=== PATIENT | male | born 1990 | race Caucasian/White ===

== ENCOUNTER 2019-10-30 07:52 | Emergency (ER) | payer OTHER ==
[2019-10-30 07:58] VITALS: BP 178/88; PULSE 98; RESP 20; TEMP 98
--- NOTE | 2019-10-30 08:15 | ED ---
Upper Extremity HPI - General Chief Complaint: Extremity Injury, Upper Stated Complaint: Left Hand Knuckle Pain Time Seen by Provider: 10/30/19 08:00 Source: patient, RN notes reviewed Mode of arrival: ambulatory Limitations: no limitations - History of Present Illness Initial Comments: 29-year-old male presents emergency Department with chief complaint of left hand third digit pain. Patient states he was playing around his kids states that he had his finger bent underneath of his hand and states that popped. He states shortly after started swelling he's had increasing pain throughout the night. Patient is right-hand dominant no prior injuries to his left hand. No paresthesias no weakness. - Related Data Allergies Allergy/AdvReac Type Severity Reaction Status Date / Time No Known Allergies Allergy Verified 10/30/19 07:58 Review of Systems ROS Statement: Those systems with pertinent positive or pertinent negative responses have been documented in the HPI. ROS Other: All systems not noted in ROS Statement are negative. Past Medical History Past Medical History: No Reported History History of Any Multi-Drug Resistant Organisms: None Reported Past Surgical History: No Surgical Hx Reported Past Psychological History: No Psychological Hx Reported Smoking Status: Never smoker Past Alcohol Use History: None Reported Past Drug Use History: None Reported General Exam Limitations: no limitations General appearance: alert, in no apparent distress Head exam: Present: atraumatic, normocephalic, normal inspection Neck exam: Present: normal inspection, full ROM. Absent: tenderness, meningismus, lymphadenopathy Respiratory exam: Present: normal lung sounds bilaterally. Absent: respiratory distress, wheezes, rales, rhonchi, stridor Cardiovascular Exam: Present: regular rate, normal rhythm, normal heart sounds. Absent: systolic murmur, diastolic murmur, rubs, gallop, clicks Extremities exam: Present: other (Left hand third MCP region there is moderate swelling, times palpation patient has full range of motion full-strength neurovascular intact) Course Vital Signs 10/30/19 07:56 Temperature 98.0 F Pulse Rate 98 Respiratory 20 Rate Blood Pressure 178/88 O2 Sat by Pulse 98 Oximetry Medical Decision Making - Medical Decision Making X-rays are negative for acute abnormality. Patient has a sprain of his left hand. Patient will be started on conservative treatment including rest ice elevation and ibuprofen. Return parameters were discussed. Disposition Clinical Impression: Sprain, MCP, hand, left Disposition: HOME SELF-CARE Condition: Stable Instructions (If sedation given, give patient instructions): Hand Sprain (ED) Additional Instructions: Please return to the Emergency Department if symptoms worsen or any other concerns. Is patient prescribed a controlled substance at d/c from ED?: No Referrals: None,Stated [Primary Care Provider] - 1-2 days Edwin Levy DO [Medical Doctor] - 1-2 days Time of Disposition: 08:46
--- NOTE | 2019-10-30 08:46 | XR ---
EXAMINATION TYPE: XR hand complete LT , 3 VIEWS DATE OF EXAM ORDERED: 10/30/2019 HISTORY: 3rd MCP pain. COMPARISON: None. FINDINGS: No fracture, dislocation or other osseous lesion is seen. IMPRESSION: NO ACUTE OSSEOUS LESION.
== END 2019-10-30 08:55 | disposition home or self-care (01) ==
LOC: EC 07:52
DX: S63.653A Sprain of metacarpophalangeal joint of left middle finger, initial encounter (principal); X50.9XXA Other and unspecified overexertion or strenuous movements or postures, initial encounter; Y93.89 Activity, other specified; Y92.009 Unspecified place in unspecified non-institutional (private) residence as the place of occurrence of the external cause
CPT/HCPCS: 99283

== ENCOUNTER 2020-05-13 13:45 | Emergency (ER) | payer OTHER ==
[2020-05-13 13:57] VITALS: RESP 18
[2020-05-13] MEDS ORDERED: ONDANSETRON 4 MG/2 ML VIAL IVP STA (14:21)
[2020-05-13] MEDS ORDERED: PANTOPRAZOLE 40 MG/10 ML VIAL IVP STA (14:21)
[2020-05-13] MEDS ORDERED: SODIUM CHLORIDE 0.9% 500 ML 500 ML IV STA (14:21)
[2020-05-13] MEDS ORDERED: SODIUM CHLORIDE 0.9% 1,000 ML IV STA ×2 (14:21)
--- NOTE | 2020-05-13 14:23 | ED ---
Nausea/Vomiting/Diarrhea HPI - General Chief complaint: Nausea/Vomiting/Diarrhea Stated complaint: NVD Time Seen by Provider: 05/13/20 14:02 Source: patient, RN notes reviewed, old records reviewed Mode of arrival: ambulatory Limitations: no limitations - History of Present Illness Initial comments: This is a 30-year-old male DF for persistent nausea vomiting diarrhea starting yesterday persisting today. Multiple episodes of diarrhea 3 multiple episodes of vomiting 3. No known travel history or sick contacts no abdominal pain no fevers. No medical history takes no medications MD complaint: nausea, vomiting, diarrhea -: days(s) Description of Vomiting: food contents Associated Abdominal Pain: Yes Radiation: none Severity: mild Severity scale (1-10): 3 Consistency: constant Improves with: none (Who is not bleeding although I got a difficult.) Worsens with: none Context: sick contacts (: Neurologic) Associated Symptoms: denies other symptoms - Related Data Allergies Allergy/AdvReac Type Severity Reaction Status Date / Time No Known Allergies Allergy Verified 10/30/19 07:58 Review of Systems ROS Statement: Those systems with pertinent positive or pertinent negative responses have been documented in the HPI. ROS Other: All systems not noted in ROS Statement are negative. Past Medical History Past Medical History: Asthma History of Any Multi-Drug Resistant Organisms: None Reported Past Surgical History: No Surgical Hx Reported Additional Past Surgical History / Comment(s): oral Past Psychological History: No Psychological Hx Reported Smoking Status: Never smoker Past Alcohol Use History: Occasional Past Drug Use History: None Reported General Exam Limitations: no limitations General appearance: alert, in no apparent distress Head exam: Present: atraumatic, normocephalic, normal inspection Eye exam: Present: normal appearance, PERRL, EOMI. Absent: scleral icterus, conjunctival injection, periorbital swelling ENT exam: Present: normal exam, mucous membranes moist Neck exam: Present: normal inspection. Absent: tenderness, meningismus, lymphadenopathy Respiratory exam: Present: normal lung sounds bilaterally. Absent: respiratory distress, wheezes, rales, rhonchi, stridor Cardiovascular Exam: Present: regular rate, normal rhythm, normal heart sounds. Absent: systolic murmur, diastolic murmur, rubs, gallop, clicks GI/Abdominal exam: Present: soft, normal bowel sounds. Absent: distended, tenderness, guarding, rebound, rigid Extremities exam: Present: normal inspection, full ROM, normal capillary refill. Absent: tenderness, pedal edema, joint swelling, calf tenderness Back exam: Present: normal inspection Neurological exam: Present: alert, oriented X3, CN II-XII intact Psychiatric exam: Present: normal affect, normal mood Skin exam: Present: warm, dry, intact, normal color. Absent: rash Course Vital Signs 05/13/20 05/13/20 13:54 15:23 Temperature 99 F 97.8 F Pulse Rate 95 85 Respiratory 18 18 Rate Blood Pressure 156/86 152/95 O2 Sat by Pulse 99 98 Oximetry - Reevaluation(s) Reevaluation #1: 05/13/20 14:35 Medical records reviewed Symptoms improved if not resolved Medical Decision Making - Medical Decision Making 28 male persistent nausea vomiting and diarrhea. Symptoms resolved patient can be discharged home - Lab Data Result diagrams: 05/13/20 14:23 05/13/20 14:23 Lab Results 05/13/20 05/13/20 Range/Units 14:23 14:23 WBC 7.6 (3.8-10.6) k/uL RBC 5.47 (4.30-5.90) m/uL Hgb 16.6 (13.0-17.5) gm/dL Hct 47.4 (39.0-53.0) % MCV 86.7 (80.0-100.0) fL MCH 30.3 (25.0-35.0) pg MCHC 35.0 (31.0-37.0) g/dL RDW 13.4 (11.5-15.5) % Plt Count 244 (150-450) k/uL Neutrophils % 54 % Lymphocytes % 33 % Monocytes % 7 % Eosinophils % 3 % Basophils % 1 % Neutrophils # 4.1 (1.3-7.7) k/uL Lymphocytes # 2.5 (1.0-4.8) k/uL Monocytes # 0.6 (0-1.0) k/uL Eosinophils # 0.3 (0-0.7) k/uL Basophils # 0.1 (0-0.2) k/uL Sodium 139 (137-145) mmol/L Potassium 4.2 (3.5-5.1) mmol/L Chloride 103 (98-107) mmol/L Carbon Dioxide 24 (22-30) mmol/L Anion Gap 12 mmol/L BUN 9 (9-20) mg/dL Creatinine 0.68 (0.66-1.25) mg/dL Est GFR (CKD-EPI)AfAm >90 (>60 ml/min/1.73 sqM) Est GFR (CKD-EPI)NonAf >90 (>60 ml/min/1.73 sqM) Glucose 96 (74-99) mg/dL Calcium 9.6 (8.4-10.2) mg/dL Phosphorus 3.0 (2.5-4.5) mg/dL Magnesium 2.0 (1.6-2.3) mg/dL Total Bilirubin 1.8 H (0.2-1.3) mg/dL AST 41 (17-59) U/L ALT 49 (4-49) U/L Alkaline Phosphatase 42 (38-126) U/L Total Protein 7.5 (6.3-8.2) g/dL Albumin 5.0 (3.5-5.0) g/dL Disposition Clinical Impression: Dehydration, Food poisoning, Gastroenteritis Disposition: HOME SELF-CARE Condition: Good Instructions (If sedation given, give patient instructions): Acute Nausea and Vomiting (ED) Is patient prescribed a controlled substance at d/c from ED?: No Referrals: None,Stated [Primary Care Provider] - 1-2 days
[2020-05-13 14:32] LABS: Basophils # (A) 0.1 k/uL (0-0.2); Basophils % (A) 1 %; Eosinophils # (A) 0.3 k/uL (0-0.7); Eosinophils % (A) 3 %; HCT 47.4 % (39.0-53.0); HGB 16.6 gm/dL (13.0-17.5); Lymphocytes # (A) 2.5 k/uL (1.0-4.8); Lymphocytes % (A) 33 %; MCH 30.3 pg (25.0-35.0); MCV 86.7 fL (80.0-100.0); Mean Platelet Volume 6.8; Monocytes # (A) 0.6 k/uL (0-1.0); Monocytes % (A) 7 %; Neutrophils # (A) 4.1 k/uL (1.3-7.7); Neutrophils % (A) 54 %; Platelet Count 244 k/uL (150-450); RBC 5.47 m/uL (4.30-5.90); RDW 13.4 % (11.5-15.5); WBC 7.6 k/uL (3.8-10.6)
[2020-05-13 14:40] LABS: ALT 49 U/L (4-49); AST 41 U/L (17-59); African American GFR (CKD) >90 (>60 ml/min/1.73 sqM); Alkaline Phosphatase 42 U/L (38-126); Anion Gap 12 mmol/L; Blood Urea Nitrogen 9 mg/dL (9-20); Calcium 9.6 mg/dL (8.4-10.2); Carbon Dioxide 24 mmol/L (22-30); Chloride 103 mmol/L (98-107); Glucose 96 mg/dL (74-99); Non-African American GFR(CKD) >90 (>60 ml/min/1.73 sqM); Potassium 4.2 mmol/L (3.5-5.1); Sodium 139 mmol/L (137-145); Total Bilirubin 1.8 mg/dL (0.2-1.3); Total Protein 7.5 g/dL (6.3-8.2)
[2020-05-13 15:28] VITALS: BP 152/95; PULSE 85; TEMP 97.8
== END 2020-05-13 15:23 | disposition home or self-care (01) ==
LOC: EC 13:45
DX: A05.9 Bacterial foodborne intoxication, unspecified (principal); K52.9 Noninfective gastroenteritis and colitis, unspecified; E86.0 Dehydration
CPT/HCPCS: 99284; 96374; 96375; 96361; 36415; 80053; 83735; 84100; 85025; J2405; C9113

== ENCOUNTER → 2020-06-23 | Outpatient (CLI) | payer OTHER | END | disposition home or self-care (01) | LOC: LABWHC1 12:03 | PROVIDERS: ATTEND Pediatrics Pediatric Infectious Diseases | DX: Z11.59 Encounter for screening for other viral diseases (principal) | CPT/HCPCS: U0003; C9803 ==

== ENCOUNTER 2021-01-24 17:23 | Emergency (ER) | payer OTHER ==
[2021-01-24 17:44] VITALS: BP 139/74; PULSE 100; RESP 18; TEMP 99.3
--- NOTE | 2021-01-24 18:04 | XR ---
EXAMINATION TYPE: XR ribs RT w pa chest xray DATE OF EXAM: 01/24/2021 COMPARISON: NONE HISTORY: Rib pain TECHNIQUE: 5 views FINDINGS: Heart and mediastinum are normal. Lungs are clear. Diaphragm is normal. Bony thorax is inta ct. There is no pleural effusion or pneumothorax. There is no evidence of a rib fracture. The right s houlder appears intact. IMPRESSION: Negative right rib exam. Normal chest.
--- NOTE | 2021-01-24 18:36 | ED ---
General Adult HPI - General Chief complaint: Chest Pain Stated complaint: Right rib pain/injury Time Seen by Provider: 01/24/21 18:28 Source: patient, RN notes reviewed, old records reviewed Mode of arrival: ambulatory Limitations: no limitations - History of Present Illness Initial comments: 30-year-old male presents for evaluation of right lateral chest pain. Patient states he was laying on the floor, he had a friend adjusting his thoracic spine. He felt a popping sensation and pain in his right lateral rib. He was concerned that he may have had a rib fracture. He still has some pain in this area although it is reduced at this time. This occurred approximately 3 hours prior to evaluation. No difficulty breathing. No abdominal pain. No limb numbness or weakness. No central chest pain. This is right along the lateral margin of the chest wall. - Related Data Previous Rx's Medication Instructions Recorded Ibuprofen [Motrin] 600 mg PO Q8HR PRN #24 tab 01/24/21 Allergies Allergy/AdvReac Type Severity Reaction Status Date / Time No Known Allergies Allergy Verified 01/24/21 17:42 Review of Systems ROS Statement: Those systems with pertinent positive or pertinent negative responses have been documented in the HPI. ROS Other: All systems not noted in ROS Statement are negative. Past Medical History Past Medical History: Asthma, Hypertension History of Any Multi-Drug Resistant Organisms: None Reported Past Surgical History: No Surgical Hx Reported Additional Past Surgical History / Comment(s): oral Past Psychological History: No Psychological Hx Reported Smoking Status: Former smoker Past Alcohol Use History: Occasional Past Drug Use History: None Reported General Exam Limitations: no limitations General appearance: alert, in no apparent distress Head exam: Present: atraumatic, normocephalic Eye exam: Present: normal appearance ENT exam: Present: normal exam Neck exam: Present: normal inspection. Absent: tenderness, meningismus Respiratory exam: Present: normal lung sounds bilaterally, chest wall tenderness (Tenderness along the fifth or sixth rib laterally. No crepitus. ). Absent: respiratory distress, wheezes, rales, rhonchi Cardiovascular Exam: Present: regular rate, normal rhythm GI/Abdominal exam: Present: soft. Absent: distended, tenderness, guarding, rebound Extremities exam: Present: normal inspection, normal capillary refill. Absent: pedal edema, calf tenderness Back exam: Present: normal inspection, full ROM Neurological exam: Present: alert, oriented X3, CN II-XII intact. Absent: motor sensory deficit Psychiatric exam: Present: normal affect, normal mood Skin exam: Present: warm, dry, intact Course Vital Signs 01/24/21 17:40 Temperature 99.3 F Pulse Rate 100 Respiratory 18 Rate Blood Pressure 139/74 O2 Sat by Pulse 99 Oximetry Medical Decision Making - Medical Decision Making 30-year-old male with right chest wall pain. X-ray performed, negative for pneumothorax, negative for displaced rib fracture, no acute findings. Patient will be prescribed Motrin. He will follow with his primary condition of symptoms persist she will return with worsening or changing symptoms. Disposition Clinical Impression: Chest pain, Contusion of rib Disposition: HOME SELF-CARE Condition: Good Instructions (If sedation given, give patient instructions): Chest Pain (ED), Rib Contusion (ED) Prescriptions: Ibuprofen [Motrin] 600 mg PO Q8HR PRN #24 tab PRN Reason: Pain Is patient prescribed a controlled substance at d/c from ED?: No Referrals: Mynor Cody MD [Primary Care Provider] - 1-2 days Time of Disposition: 18:36
== END 2021-01-24 18:39 | disposition home or self-care (01) ==
LOC: EC 17:23
DX: S20.219A Contusion of unspecified front wall of thorax, initial encounter (principal); J45.909 Unspecified asthma, uncomplicated; I10 Essential (primary) hypertension; Z87.891 Personal history of nicotine dependence; X58.XXXA Exposure to other specified factors, initial encounter

== ENCOUNTER → 2023-12-18 | Outpatient (CLI) | payer OTHER ==
[2023-12-19 02:24] LABS: HCT 49.2 % (39.6-50.0); HGB 16.3 g/dL (13.0-17.0); MCHC 33.1 g/dL (32.0-37.0); MCV 84.4 FL (80.0-97.0); Mean Platelet Volume 9.2 FL (9.5-12.2); NRBC Per 100 WBC 0 X 10*3/uL (0.00-0.01); Platelet Count 266 X 10*3/uL (140-440); RBC 5.83 X 10*6/uL (4.40-5.60); WBC 8.79 X 10*3/uL (4.50-10.00)
[2023-12-19 03:11] LABS: ALT 45 U/L (10-49); AST 24 U/L (14-35); Albumin 4.3 g/dL (3.8-4.9); Albumin/Globulin Ratio 2.39 Ratio (1.60-3.17); Alkaline Phosphatase 36 U/L (41-126); Calcium 9.4 mg/dL (8.7-10.3); Carbon Dioxide 27.8 mmol/L (21.6-31.8); Chloride 101 mmol/L (96-109); Globulin 1.8 g/dL (1.6-3.3); Glucose 93 mg/dL (70-110); Potassium 4.4 mmol/L (3.5-5.5); Sodium 141 mmol/L (135-145); Total Bilirubin 0.8 mg/dL (0.3-1.2); Total Protein 6.1 g/dL (6.2-8.2)
== END | disposition home or self-care (01) ==
LOC: LABPAT 15:15
PROVIDERS: ATTEND Surgery
DX: E66.01 Morbid (severe) obesity due to excess calories (principal); K90.89 Other intestinal malabsorption; E55.9 Vitamin D deficiency, unspecified
CPT/HCPCS: 36415; 80053; 82306; 82607; 82746; 83036; 85027

== ENCOUNTER → 2023-12-18 | Outpatient (CLI) | payer OTHER ==
[2023-12-18 15:07] VITALS: BP 132/84; PULSE 87; RESP 16; TEMP 98.5; BMI 43.8
--- NOTE | 2023-12-18 17:55 | P.HPBAR ---
Bariatric H&P - History & Physicial H&P Date: 12/18/23 History & Physicial: Visit/CC: Initial Consult Patient initial contact: Initial weight: 128.82 kg Initial weight in pounds: 284.00 Height: 5 ft 7.5 in Initial BMI: 43.8 Last weight: Current weight: 128.82 kg Current weight in pounds: 284.00 Current BMI: 43.8 [place] body weight (based on NIH guidelines): 68.492 kg Excess body weight loss: 0.0% The patient is a 33 year-old M who presents for Bariatric Assessment. Patient here to discuss sleeve gastrectomy. He is is currently going through preoperative sleeve gastrectomy workup. She has her upper endoscopy scheduled next Friday. Current BMI 43.8. Patient has suffered with his weight for many years. He has tried a variety of weight loss methods. Patient suffers from hypertension, migraines, intermittent tachycardia, mild GERD. No history of DVT or dysphagia. No abdominal surgeries. No known hernias. No tobacco use. Patient has considered gastric bypass but does not like the long-term complication profile. Review of Systems The patient denies any acute changes in vision or hearing, no dysphagia or odynophagia, no chest pain or shortness of breath, no dysuria or hematuria, no headache, no runny nose, no rectal bleeding or melena, no unexplained weight loss Past Medical History Past Medical History: Asthma, Hypertension History of Any Multi-Drug Resistant Organisms: None Reported Past Surgical History: No Surgical Hx Reported Additional Past Surgical History / Comment(s): oral. Vasectomy. removal of wisdom teeth Past Anesthesia/Blood Transfusion Reactions: No Reported Reaction Smoking Status: Former smoker Surgical - Exam Vital Signs Temp Pulse Resp BP 98.5 F 87 16 132/84 12/18/23 14:46 12/18/23 14:46 12/18/23 14:46 12/18/23 14:46 Physical exam: General: Well-developed, well-nourished HEENT: Normocephalic, sclerae nonicteric Abdomen: Nontender, nondistended Extremities: No edema Neuro: Alert and oriented Bariatric Assessment & Plan (1) Morbid obesity with BMI of 40.0-44.9, adult Narrative/Plan: 33-year-old male with morbid obesity and associated comorbidities. Patient remains interested in sleeve gastrectomy. Average weight loss risks and benefits of sleeve gastrectomy and gastric bypass discussed. Pre and postoperative sleeve gastrectomy expectations reviewed as well. He remains interested. Will schedule for upper endoscopy in the near future. Will check routine labs. Status: Acute Bariatric Checklist Checklist: Plan: Checklist: EGD: 1. Hiatal hernia: 2. H. Pylori: HgbA1c: Vitamin D: Smoking: Never smoker Primary care physician referral: Michael Psychiatry clearance: Cardiology clearance: Sleep study: Diet journal: VTE risk score: VTE risk level: Rehab needs at discharge:
== END ==
LOC: BARWHC3 14:32
PROVIDERS: ATTEND Surgery
DX: E66.01 Morbid (severe) obesity due to excess calories (principal); I10 Essential (primary) hypertension; J45.909 Unspecified asthma, uncomplicated; K21.9 Gastro-esophageal reflux disease without esophagitis; G43.909 Migraine, unspecified, not intractable, without status migrainosus; R00.0 Tachycardia, unspecified; Z68.41 Body mass index [BMI] 40.0-44.9, adult; Z87.891 Personal history of nicotine dependence; Z79.899 Other long term (current) drug therapy
CPT/HCPCS: 99211

== ENCOUNTER 2024-02-03 10:46 | Day surgery (SDC) | payer OTHER ==
[2024-01-29 16:19] VITALS: BMI 45.4
[~2024-02-03 10:46] MED LIST: LACTATED RINGERS 1,000 ML IV SCH; LIDOCAINE 1% (10MG/ML) FOR IV START INTRADERMA PRN
[2024-02-03 11:15] VITALS: RESP 16; TEMP 98.9
[2024-02-03] MEDS ORDERED: LIDOCAINE 2% (PF) 20 MG/ML 5 ML VIAL ONE (11:44)
[2024-02-03] MEDS ORDERED: fentaNYL (PF) 50 MCG/ML 2 ML AMP ONE (11:44)
[2024-02-03] MEDS ORDERED: MIDAZOLAM 2 MG/2 ML VIAL ONE (11:44)
[2024-02-03] MEDS ORDERED: PROPOFOL 10 MG/ML 20 ML VIAL IV ONE (11:44)
--- NOTE | 2024-02-03 11:46 | P.GSHP ---
History of Present Illness H&P Date: 02/03/24 Chief Complaint: GERD 34-year-old male here today for upper endoscopy. Patient with complaints of mild reflux. Being evaluated for sleeve gastrectomy. Past Medical History Past Medical History: Asthma, Hypertension History of Any Multi-Drug Resistant Organisms: None Reported Past Surgical History: No Surgical Hx Reported Additional Past Surgical History / Comment(s): Oral surgery, vasectomy, removal of wisdom teeth. Past Anesthesia/Blood Transfusion Reactions: No Reported Reaction Smoking Status: Former smoker - Past Family History Mother Family Medical History: No Reported History Medications and Allergies Home Medications Medication Instructions Recorded Confirmed Type Escitalopram [Lexapro] 5 mg PO DAILY 12/18/23 01/29/24 History amLODIPine [Norvasc] 5 mg PO DAILY 12/18/23 01/29/24 History buPROPion HCL [buPROPion HCL SR] 150 mg PO DAILY 12/18/23 01/29/24 History Allergies Allergy/AdvReac Type Severity Reaction Status Date / Time No Known Allergies Allergy Verified 02/03/24 11:05 Surgical - Exam Vital Signs Temp Pulse Resp BP Pulse Ox 98.9 F 93 16 142/73 96 02/03/24 11:10 02/03/24 11:10 02/03/24 11:10 02/03/24 11:10 02/03/24 11:10 Physical exam: General: Well-developed, well-nourished HEENT: Normocephalic, sclerae nonicteric Abdomen: Nontender, nondistended Extremities: No edema Neuro: Alert and oriented Assessment and Plan (1) GERD (gastroesophageal reflux disease) Narrative/Plan: Will proceed with upper endoscopy Current Visit: Yes Status: Acute Code(s): K21.9 - GASTRO-ESOPHAGEAL REFLUX DISEASE WITHOUT ESOPHAGITIS SNOMED Code(s): 168295729
[2024-02-03] MEDS: LACTATED RINGERS 1,000 ML IV ONE (11:50)
--- NOTE | 2024-02-03 11:54 | P.PCN ---
Date of Procedure: 02/03/24 Procedure(s) Performed: Preoperative Dx: GERD, presurgical Postoperative Dx: Mild gastritis Procedure: EGD with Bx Anesthesia: Sedation Endoscopist: Dr. Flores Specimens: Antrum Endoscopic Procedure: The patient was on the endoscopy table in the left decubitus position. The Olympus gastroscope was inserted into the oropharynx and passed under direct visualization to the region of the third portion of the duodenum. From that point the scope was slowly withdrawn inspecting all surfaces carefully. There were no neoplastic inflammatory or polypoid lesions throughout the duodenum. The pylorus was widely patent. The stomach was carefully inspected. There was mild gastritis present. A biopsy of the antrum took place to rule out H. pylori. Retroflexion revealed a normal hiatus. The esophagus was then carefully examined. There were no neoplastic inflammatory or polypoid lesions throughout the visualized esophagus. The patient was then taken to the recovery room in stable condition per anesthesia guidelines. Recommendations: Resume diet. Await biopsy results. Follow-up bariatric center.
[2024-02-03 12:27] VITALS: BP 120/69; PULSE 87
== END 2024-02-03 12:39 | disposition home or self-care (01) ==
LOC: ORWHC2ENDO 10:46
PROVIDERS: ATTEND Surgery
DX: K29.50 Unspecified chronic gastritis without bleeding (principal); K21.9 Gastro-esophageal reflux disease without esophagitis; J45.909 Unspecified asthma, uncomplicated; I10 Essential (primary) hypertension; E66.9 Obesity, unspecified; Z68.43 Body mass index [BMI] 50.0-59.9, adult; Z87.891 Personal history of nicotine dependence; Z98.890 Other specified postprocedural states; Z79.899 Other long term (current) drug therapy; F41.9 Anxiety disorder, unspecified
CPT/HCPCS: 88305; 43239; J2250; J3010; J2704; J2001